=== PATIENT | male | born 1945 | race Caucasian/White ===

== ENCOUNTER 2021-04-07 07:03 | Day surgery (SDC) | payer MEDICARE, BC ==
[~2021-04-07 07:03] MED LIST: Dextrose 5%-0.45% NaCl 1,000 ML IV SCH; Midazolam 1 MG/ML 2 ML SDV ONE; Sodium Chloride 0.9% 10 ML Syringe FLUSH PRN; fentaNYL 100 MCG/2 ML SDV ONE
[2021-04-07] MEDS ORDERED: fentaNYL 100 MCG/2 ML SDV IV ONE ×3 (07:04→09:12)
[2021-04-07] MEDS ORDERED: Midazolam 1 MG/ML 2 ML SDV IV ONE ×5 (07:04→09:20)
--- NOTE | 2021-04-07 11:58 | OR ---
DATE: 04/07/2021 PROCEDURES: Total colonoscopy, narrow band imaging, and cold snare polypectomy. INSTRUMENT USED: PCF-H190DL Olympus video colonoscope. PREMEDICATIONS: Fentanyl 100 mcg intravenous, Versed 3.5 mg intravenous. The procedure was done under pulse oximetry, BP recording, and environmental monitoring specialist. INDICATION: The patient with positive FIT and anemia. Colonoscopic examination is done for detection of any polypoid lesions and removal, endoscopic hemostasis therapy if needed. DESCRIPTION OF PROCEDURE: Initial rectal exam showed some anal sphincter spasm. Limited rigid anoscopy was unremarkable. The colonoscope was passed with ease. Numerous scattered diverticula were noted in the distal left colon along with deformity. The scope was passed with ease up to the ileocecal area. Photographs were taken of the cecum showing 1 cm sized benign-appearing polyp. NBI views were obtained. Cold snare polypectomy was done. The tissues were retrieved and sent for histopathology. No bleeding was noted from any of the visualized areas at the commencement of the examination. The bowel preparation was found to be adequate, [place] scale 2 in right colon, 3 in transverse and left colon, total score 8. No stricture. No vascular ectasia. No large isolated ulcerations seen. No evidence of diffuse inflammatory bowel disease in the form of friability, contact bleeding, or ulcerations. Probing the proximal sides of folds and flexures using adequate distention and clearing up the stool material, withdrawal of the scope was made, cecum to rectum time over 6 minutes. No bleeding was noted from any of the visualized areas at the completion of examination. IMPRESSION: 1. Diverticulosis. 2. Cecal polyp. The patient tolerated the procedure well. [facility] /[id number]
== END 2021-04-07 11:38 | disposition home or self-care (01) ==
LOC: DL.ENDO 07:03
PROVIDERS: ATTEND Internal Medicine Gastroenterology
DX: D12.0 Benign neoplasm of cecum (principal); K59.4 Anal spasm; D64.9 Anemia, unspecified; K57.30 Diverticulosis of large intestine without perforation or abscess without bleeding; E03.9 Hypothyroidism, unspecified; Z98.890 Other specified postprocedural states
CPT/HCPCS: 88305; J2250; J3010; J7042